=== PATIENT | female | born 1970 | race African-American/Black ===

== ENCOUNTER 2017-08-09 09:00 | Outpatient (CLI) | payer MEDICAID | END 2017-08-09 23:59 | disposition home or self-care (01) | LOC: D.MAMMO 09:00 | DX: Z12.31 Encounter for screening mammogram for malignant neoplasm of breast (principal) ==

== ENCOUNTER 2019-10-08 08:00 | Outpatient (CLI) | payer MEDICAID | END 2019-10-08 23:59 | disposition home or self-care (01) | LOC: D.MAMMO 08:00 | PROVIDERS: ATTEND Emergency Medicine | DX: Z12.31 Encounter for screening mammogram for malignant neoplasm of breast (principal) ==